=== PATIENT | male | born 1990 | race Caucasian/White ===

== ENCOUNTER 2016-10-30 10:35 | Emergency (ER) | payer OTHER ==
[~2016-10-30] VITALS: Ht 180.3 cm; Wt 72.7 kg
[~2016-10-30 10:35] MED LIST: CLIN-78 PO; LACT1CAP65 PO; OXYC1TAB24 PO
[2016-10-30 11:02] VITALS: BP 131/72; PULSE 76; RESP 16; O2SAT 100
--- NOTE | 2016-10-30 11:39 | ED.REPORT ---
HPI-General Illness Date of Service Oct 30, 2016 ED Provider: Jamal Claros PA-C Jeff is an otherwise healthy 26-year-old male with chief complaint of a laceration on his right knee. Patient states that he cut his right knee with a clint knife approximately 2 hours ago. States that the latest new and clean. He recalls having a tetanus booster 2 years ago. Denies bleeding/clotting disorders, diabetes, HIV, immunosuppression. Nursing Notes Stated Complaint: KNEE INJURY Chief Complaint: Extremity Trauma Nursing Notes Reviewed: Yes Allergies: Coded Allergies: No Known Allergies (Unverified Allergy, Unknown, 10/30/16) Scheduled Clindamycin (Clindamycin) 300 Mg Capsule 300 MG PO QID Clindamycin (Clindamycin) 300 Mg Capsule 300 MG PO QID Lactobacillus Acidophilus (Probiotic) 1 Each Capsule 1 EACH PO DAILY Scheduled PRN oxyCODONE-Acetaminophen 5-325 mg (oxyCODONE-Acetaminophen 5-325 mg) 1 Each Tablet 1-2 TAB PO Q6H PRN PRN For Pain General Time Seen by MD: 11:20 Chief Complaint Laceration Past Medical History Past Medical History Notes: ED visit for dental pain 08/2015 Past Medical History Denies Past Surgical History denies Smoking History Current Every Day Smoker Social History Alcohol Use: 1-3 per day Drug Use: THC Occupation lives with Mom Ambulatory Status Independent Review of Systems Negative unless stated otherwise in history of present illness Physical Exam General: Well appearing, well developed, well nourished, no acute distress. Head: Atraumatic, normocephalic. Eyes: No scleral icterus or injection. No discharge. Vision grossly intact. ENT: Voice clear, hearing grossly intact. Respiratory: No respiratory distress, no increased work of breathing. Speaks in complete sentences. Skin: Warm and dry. Right knee: 3 cm laceration over the insertion of the vastus lateralis, at the 10 o'clock position to the patella. Appears clean and shallow. Base well- visualized with no intrusion into the joint cavity or tendon sheath. Full strength and active range of motion. Neurological: Grossly nonfocal. Psychological: alert and oriented. Speech appropriate, linear and logical. Behavior appropriate. Vital Signs Vital Signs Date Time Temp Pulse Resp B/P Pulse Ox O2 Delivery O2 Flow Rate FiO2 10/30/16 13:25 36.4 68 20 128/68 99 Room Air 10/30/16 12:44 36.4 68 20 128/68 99 Room Air 10/30/16 11:02 37.0 76 16 131/72 100 Room Air Initial VS: Vital signs normal Procedures Laceration Management Laceration Management: 3 cm laceration lateral and proximal to right knee involving small superficial artery. Moderate bleeding controlled with direct pressure and ligation. Procedure Performed by: Allied health pract Consent / Setup / Site Prep: Informed consent provided, Consent from patient , Time-out performed, Hand hygiene observed, Stand sterile technique Wound Length: 3 cm Local Anesthesia: Lidocaine 1%, 3cc, 27g needle Wound Preparation: Normal saline Debridement: None Irrigation: 250 cc Foreign Body Explore / Removal: Explored for foreign body Repair Skin: Nylon (5-0) # Sutures - Skin: 6 Closure Layers: 1 Suture Technique: Mattress Post-Procedure / Complications: Antibiotic oint applied, Dressing applied, Comp: excessive bleeding, Condition improved, Tolerated procedure well, Patient stable Re-Eval/Medical Decision Med Decision/Clinical Course Otherwise healthy 26-year-old male presents with a laceration to his right knee which he suffered at work. He cut himself with a clean clint knife. He states he is up-to-date on tetanus and denies comorbidities. Knee retains full strength and range of motion. Cleaned with normal saline, sutured with 6x 5-0 Ethilon mattress sutures. Dressed with antibiotic ointment and gauze. I do not see an indication for like antibiotics as the patient is healthy and the wound is clean. Provided wound care instructions, primary care follow-up referral, emergency return precautions. Patient understands and agrees with the plan. Discharge & Departure Primary Impression: Laceration of knee, left Encounter type: initial encounter Qualified Code: S81.012A - Laceration without foreign body, left knee, initial encounter Disposition: Home Discharge Condition All VS Reviewed: Yes Condition: Stable Patient Instructions: Suture Care (ED) Additional Instructions: Evaluation in the emergency department for a laceration. This appears to be a clean wound, with no damage to the joint capsule or tendons. I see no indication for antibiotics at this time. you have told me that you are up-to-date on your tetanus shot. We have cleaned, sutured and dressed the wound with antibiotic ointment and gauze. Please leave this dressing on and dry for the next 24 hours. After that you can remove the dressing, clean with soap and water and then reapply antibiotic ointment and gauze or Band-Aid. The pain is best treated with 400 mg of ibuprofen (Advil, Motrin) every 6 hours , or 1000 mg of acetaminophen (Tylenol) every 6 hours. These drugs can be taken at the same time for more severe pain. Be vigilant for signs of infection. While a small amount of redness, tenderness and clear or pink drainage is normal, any increasing pain, redness, swelling or the appearance of pus suggests infection. More severe infection as suggested by symptoms such as fever, chills, feeling ill, racing heart. Please return to emergency Department if you notice signs of infection. Follow-up with your primary care provider or return to the emergency department in 10-14 days for suture removal. Referrals: [facility] EDSupervising Provider for APC: Brijesh Sousa Seth PA-C Oct 30, 2016 11:38
[2016-10-30 12:44] VITALS: BP 128/68; PULSE 68; RESP 20; O2SAT 99
[2016-10-30 13:25] VITALS: BP 128/68; PULSE 68; RESP 20; O2SAT 99
== END 2016-10-30 13:19 | disposition home or self-care (01) ==
LOC: SED 10:35
DX: S81.011A Laceration without foreign body, right knee, initial encounter (principal); W26.0XXA Contact with knife, initial encounter; Y93.89 Activity, other specified; Y99.8 Other external cause status; Y92.59 Other trade areas as the place of occurrence of the external cause; F17.200 Nicotine dependence, unspecified, uncomplicated; F12.10 Cannabis abuse, uncomplicated

== ENCOUNTER 2017-05-11 10:47 | Emergency (ER) | payer OTHER ==
[~2017-05-11] VITALS: Ht 180.3 cm; Wt 72.7 kg
[2017-05-11 10:59] VITALS: BP 140/71; PULSE 68; RESP 18; O2SAT 100
--- NOTE | 2017-05-11 11:03 | ED.REPORT ---
HPI-Extremity Problem Upper Date of Service May 11, 2017 ED Provider: History of Present Illness: cut left hand while slipping metal under another piece. happened around 930 today. up to date on tdap. normally healthy primary care is no one. 09/26 right hand dominant Nursing Notes Stated Complaint: CUT ON LT HAND FINGER Chief Complaint: Laceration Nursing Notes Reviewed: Yes Allergies: Coded Allergies: No Known Allergies (Unverified Allergy, Unknown, 10/30/16) Scheduled Clindamycin (Clindamycin) 300 Mg Capsule 300 MG PO QID Clindamycin (Clindamycin) 300 Mg Capsule 300 MG PO QID Lactobacillus Acidophilus (Probiotic) 1 Each Capsule 1 EACH PO DAILY Scheduled PRN oxyCODONE-Acetaminophen 5-325 mg (oxyCODONE-Acetaminophen 5-325 mg) 1 Each Tablet 1-2 TAB PO Q6H PRN PRN For Pain General Time Seen by MD: 11:02 Chief Complaint Finger injury left 2 (laceration) Past Medical History Past Medical History Notes: ED visit for dental pain 08/2015 Past Medical History Denies Past Surgical History denies Smoking History Current Every Day Smoker (1 pack a day for 12 years) Social History Alcohol Use: 1-3 per day Drug Use: THC Occupation lives by self, work at [employer] 05/11/2017 Ambulatory Status Independent Review of Systems Basic Review of Systems Eyes: Vision NL, No discharge : No dysuria, No frequency Allergy / Immune: No allergy Psychiatric: Normal thought content Physical Exam Initial Vital Signs Vital Signs (First) Date Time Temp Pulse Resp B/P Pulse Ox O2 Delivery O2 Flow Rate FiO2 05/11/17 10:59 36.5 68 18 140/71 100 Room Air Initial VS: Reviewed, Vital signs normal General/Constitutional: Well-developed, Well-nourished Head / Eyes: Atraumatic, Normocephalic, PERRL ENT: Mucous membranes moist, Conjunctiva normal, No scleral icterus Neck: Supple, Non-tender, Full range of motion Respiratory: Breath sounds normal, Clear to auscultation, No respiratory distress Cardiovascular: Regular rate & rhythm, Heart sounds normal, Intact distal pulses Abdomen / GI: Soft, Non-tender, No guarding, No rebound, No distention Back: No CVA tenderness Lymphatic: No lymphadenopathy Lower Extremities: Vascular intact, Neuro intact, No swelling, No tenderness Skin: Warm, Dry, No cyanosis Neurologic: Alert, Oriented, Nonfocal Psychiatric: Mood/affect normal, Behavior normal, Normal thought content General/Constitutional: Awake, Alert, No acute distress, Well appearing, Well developed, Well hydrated, Well nourished, Cooperative, Not toxic appearing Respiratory / Chest: Atraumatic, Breath sounds NL, Breath sounds = bilat, No respiratory distress Cardiovascular: Heart rate NL, Regular rhythm, Heart sounds NL, No gallop, No murmurs, No rubs, Cap refill not delayed Upper Extremity / MS: Atraumatic, Inspection NL, Full range of motion, No swelling left hand index finger has flap laceration 2 cm in length. No active bleeding. Sensation intact distally, cap refill less than 2 sec. Has full range of motion of finger Procedures Laceration Management Time: 11:15 Procedure Performed by: Allied health pract Consent / Setup / Site Prep: Informed consent provided, Consent from patient , Hand hygiene observed, Stand sterile technique Location of Wound: left index finger Wound Length: 2 cm Local Anesthesia: Lidocaine 1%, 4cc, 27g needle Digital Block: No Wound Preparation: Normal saline Debridement: None Irrigation: 150 cc Repair Skin: ___ O (5), Nylon # Sutures - Skin: 4 Closure Layers: 1 Suture Technique: Simple Post-Procedure / Complications: Antibiotic oint applied, Dressing applied, No complications, Condition improved, Tolerated procedure well, Patient stable Re-Eval/Medical Decision Med Decision/Clinical Course 27 year old male presents for evualation of laceration on left index finger. Patient states injury did not happen at work. No sign of compartment syndrome or tendon damage. Discharge & Departure Impression: Primary Impression: Laceration Disposition: Home Patient Instructions: Finger Laceration (ED) Additional Instructions: The laceration has been repaired with 4 sutures. Keep dry for 24 hours. It is OK to get wet after that, Sutures out here in 10 to 12 days. Apply bacitracin to the site with each band aid change. I am sorry this happened. Referrals: [facility] EDSupervising Provider for APC: Dayna Wagner MD copies to: [facility] Sara Ramirez May 11, 2017 11:03
== END 2017-05-11 11:42 | disposition home or self-care (01) ==
LOC: SED 10:47
DX: S61.211A Laceration without foreign body of left index finger without damage to nail, initial encounter (principal); W26.8XXA Contact with other sharp object(s), not elsewhere classified, initial encounter; Y93.89 Activity, other specified; Y92.89 Other specified places as the place of occurrence of the external cause; Y99.8 Other external cause status; F17.200 Nicotine dependence, unspecified, uncomplicated